=== PATIENT | female | born 1965 | race Two or more races ===

== ENCOUNTER 2017-01-24 01:44 | Emergency (ER) | payer MEDICAID ==
--- NOTE | 2017-01-24 02:11 | ED Physician Chart ---
Chief Complaint/HPI - Patient Information Date Seen:: 01/24/17 Time Seen:: 02:00 Chief Complaint:: headache, back pain, nausea, tingling of arms and feet History of Present Illness:: Patient has had a headache, back pain, nausea, abdominal pain, tingling of arms and legs for 1 months. She's had no fever, vomiting or diarrhea. Allergies:: Allergies Allergy/AdvReac Type Severity Reaction Status Date / Time No Known Allergies Allergy Verified 01/24/17 02:00 Vitals:: Vital Signs - 8 hr 01/24/17 01:55 Temp 97.7 F HR 72 RR 18 BP 144/89 O2 Sat % 96 Historian:: Patient Review:: Nurse's Note Reviewed Review of Systems - Review of Systems General/Constitutional: No fever, No chills Skin: Skin lesions Head: Headache Eyes: No loss of vision ENT: No earache Neck: No neck pain GI: Nausea, No vomiting, No diarrhea, Pain G/U: No dysuria Musculoskeletal: No bone or joint pain Endocrine: No polyuria, No polydipsia Psychiatric: No prior psych history, No depression Hematopoietic: No bruising Allergic/Immuno: No urticaria Neurological: No syncope Past Medical History - Past Medical History Past Medical History: No significant medical hx Family History: HTN Social History: Non Smoker, No Alcohol Surgical History: Psychiatricy History: None Family Medical History - Family Member Mother Hx Family Hypertension: Yes Physical Exam - Physical Examination General/Constitutional: Well-developed, well-nourished, Alert, No distress Head: Atraumatic Eyes: Lids, conjuctiva normal, PERRL Skin: Nl inspection, No rash, No skin lesions, No ecchymosis ENMT: External ears, nose nl, TM canals nl, Nasal exam nl, Lips, teeth, gums nl Neck: No nuchal rigidity Respiratory: Nl effort/Exclusion, Clear to Auscultation, No Wheeze/Rhonchi/Rales Cardio Vascular: RRR GI: No tenderness/rebounding/guarding, No organomegaly, No hernia, Normal BS's, Nondistended, No mass/bruits, No McBurney tenderness Extremities: Normal digits & nails Neuro/Psych: No focal deficits Labs/Radiology/EKG Results - Lab Results Results: Laboratory Results - last 24 hr 01/24/17 01/24/17 01/24/17 02:12 02:12 02:30 WBC 10.2 RBC 4.61 Hgb 14.5 Hct 42.4 MCV 92.0 MCH 31.5 H MCHC Differential 34.3 RDW 13.0 Plt Count 272 MPV 8.2 Neutrophils % 49.4 Lymphocytes % 36.2 Monocytes % 7.8 Eosinophils % 5.9 H Basophils % 0.7 Sodium 137 Potassium 3.7 Chloride 108 H Carbon Dioxide 25.1 Anion Gap 7.6 BUN 19 Creatinine 0.8 Est GFR ( Amer) > 60.0 Est GFR (Non-Af Amer) > 60.0 BUN/Creatinine Ratio 23.8 Glucose 92 Calcium 10.0 Lipase 19 Urine Source [place] Urine Color YELLOW Urine Clarity CLEAR Urine pH 6.0 Ur Specific [place] 1.025 Urine Protein NEGATIVE Urine Glucose (UA) NEGATIVE Urine Ketones NEGATIVE Urine Blood TRACE Urine Nitrate NEGATIVE Urine Bilirubin NEGATIVE Urine Urobilinogen 0.2 Ur Leukocyte Esterase NEGATIVE Urine RBC 0-2 Urine WBC 0-2 Ur Epithelial Cells MODERATE Urine Bacteria FEW Urine Test 01/24/17 02:30 WBC RBC Hgb Hct MCV MCH MCHC Differential RDW Plt Count MPV Neutrophils % Lymphocytes % Monocytes % Eosinophils % Basophils % Sodium Potassium Chloride Carbon Dioxide Anion Gap BUN Creatinine Est GFR ( Amer) Est GFR (Non-Af Amer) BUN/Creatinine Ratio Glucose Calcium Lipase Urine Source Urine Color Urine Clarity Urine pH Ur Specific [place] Urine Protein Urine Glucose (UA) Urine Ketones Urine Blood Urine Nitrate Urine Bilirubin Urine Urobilinogen Ur Leukocyte Esterase Urine RBC Urine WBC Ur Epithelial Cells Urine Bacteria Urine Test NEGATIVE ED Septic Shock - . Is Septic Shock (SBP<90, OR Lactate>4 mmol\L) present?: No - <6hrs of presentation: Vital Signs: Vital Signs - 8 hr 01/24/17 01:55 Temp 97.7 F HR 72 RR 18 BP 144/89 O2 Sat % 96 Reassessment (Disposition) - Reassessment Reassessment:: at 0325 patient feels better Reassessment Condition:: Improved - Diagnosis Diagnosis:: Acute viral syndrome - Aftercare/Follow up Instructions Aftercare/Follow-Up Instructions:: Refer to Discharge Instructions Medication Prescribed:: Zofran 4 mg oral dissolving tablet #12 to take one every 4-6 hours as necessary - Patient Disposition Discharge/Transfer:: Home Condition at Disposition:: Stable, Improved
[2017-01-24 02:20] LABS: % BASOPHILS 0.7 % (0.0-2.0); % EOSINOPHILS 5.9 % (0.0-5.0); % LYMPHOCYTES 36.2 % (20.0-50.0); % MONOCYTES 7.8 % (2.0-10.0); % NEUTROPHILS 49.4 % (40.0-80.0); HEMATOCRIT 42.4 % (35.0-45.0); HEMOGLOBIN 14.5 gm/dL (11.7-15.5); MEAN CORPUSCULAR HEMOGLOBIN 31.5 pg (27.0-31.0); MEAN CORPUSCULAR HGB CONC 34.3 pg (28.0-36.0); MEAN PLATELET VOLUME 8.2 fl; PLATELET COUNT 272 Th/cmm (150-400); RED BLOOD COUNT 4.61 Mil/cmm (3.80-5.10); WHITE BLOOD COUNT 10.2 Th/cmm (4.8-10.8)
[2017-01-24 02:33] LABS: ANION GAP 7.6 (7.0-16.0); BUN - UREA NITROGEN 19 mg/dL (7-25); BUN/CREATININE RATIO 23.8; CARBON DIOXIDE 25.1 mEq/L (21.0-31.0); CHLORIDE 108 mEq/L (98-107); CREATININE - SERUM 0.8 mg/dL (0.6-1.2); GLUCOSE 92 mg/dL (70-105); LIPASE 19 U/L (11-82); POTASSIUM SERUM 3.7 mEq/L (3.5-5.1); SODIUM SERUM 137 mEq/L (136-145)
[2017-01-24 02:43] LABS: URINE BILIRUBIN NEGATIVE (NEGATIVE); URINE BLOOD TRACE (NEGATIVE); URINE COLOR YELLOW; URINE GLUCOSE (UA) NEGATIVE (NEGATIVE); URINE KETONE NEGATIVE (NEGATIVE); URINE PROTEIN NEGATIVE (NEGATIVE); URINE UROBILINOGEN 0.2 E.U./dL (0.2 - 1.0)
[2017-01-24 02:47] LABS: URINE BACTERIA FEW /hpf (NONE SEEN); URINE EPITHELIAL CELLS MODERATE /lpf (FEW); URINE RBC 0-2 /hpf (0-5); URINE WBC 0-2 /hpf (0-5)
== END 2017-01-24 03:40 | disposition home or self-care (01) ==
LOC: ER 01:44
DX: B34.9 Viral infection, unspecified (principal); M54.9 Dorsalgia, unspecified; R11.0 Nausea
CPT/HCPCS: 99284; 96372; 36415; 85025; 81001; 81025; 83690; 80048; Q0162; J1885; Z7502